=== PATIENT | male | born 2005 ===

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

== ENCOUNTER 2025-01-24 09:09 | Outpatient (CLI) | payer MEDICAID, SELFPAY | END 2025-01-24 09:10 | disposition home or self-care (01) | PROVIDERS: PCP Family Medicine; Visit Provider Family Medicine | DX: R53.83 Other fatigue (principal); Z13.6 Encounter for screening for cardiovascular disorders | CPT/HCPCS: 80053; 80061; 84443 ==